=== PATIENT | female | born 1950 | race Caucasian/White ===

== ENCOUNTER 2023-04-10 13:32 | Outpatient (CLI) | payer OTHER | END 2023-04-10 13:33 | disposition home or self-care (01) | LOC: BICMAMMO 13:32 | PROVIDERS: ATTEND Internal Medicine | DX: Z12.31 Encounter for screening mammogram for malignant neoplasm of breast (principal); N64.89 Other specified disorders of breast; N63.15 Unspecified lump in the right breast, overlapping quadrants | CPT/HCPCS: 77063; 77067 ==

== ENCOUNTER 2023-05-21 14:25 | Outpatient (CLI) | payer OTHER | END 2023-05-21 14:26 | disposition home or self-care (01) | LOC: BICMAMMO 14:25 | PROVIDERS: ATTEND Internal Medicine | DX: N63.15 Unspecified lump in the right breast, overlapping quadrants (principal); N64.89 Other specified disorders of breast | CPT/HCPCS: 77066; G0279 ==